=== PATIENT | male | born 1965 | race Caucasian/White ===

== ENCOUNTER → 2023-02-27 15:01 | Outpatient (CLI) | payer MEDICARE, SELFPAY ==
--- NOTE | 2023-02-27 15:09 | XR_ITS ---
FINAL REPORT TECHNIQUE: Chest PA & Lateral CLINICAL HISTORY: cough, upper lt sided abd pain FINDINGS: 2 views of the chest were performed. The heart size is normal. The mediastinum is within normal limits. There is a 19 mm nodular opacity in the right lateral lower thorax. There are no pleural effusions. There is no pneumothorax. There is a chronic fracture of the right sixth posterior rib. There is postoperative change involving the thoracolumbar spine. IMPRESSION: Nodular opacity in the right lateral lower thorax. Uncertain if this is related to the right posterior 10th rib. Follow-up may be helpful. Reviewed, Interpreted and Dictated by Maurilio Merritt III, MD Transcribed by Andrea Rader Authenticated and [facility]
== END ==
PROVIDERS: PCP Family Medicine; Visit Provider Family Medicine
DX: R05.9 Cough, unspecified (principal)
CPT/HCPCS: 71046

== ENCOUNTER → 2023-03-12 12:44 | Outpatient (POV) | payer MEDICARE, SELFPAY ==
--- NOTE | 2023-03-12 13:17 | EXP.PAIN.OV ---
HPI Data of Consult Patient: new to practice Consult date: 03/12/23 Requesting Physician: Tamiko Montalvo APRN Primary Care Provider: Tom Ledesma MD Consult Narrative Reason for consult: Low back pain, bilateral shoulder pain, wrist pain History of present illness: Mr. Franz is a 57 year old male who presents today as a new patient. He is a referral from Dr. Ledesma's office. Today he rates his pain a 10 out of 10. Patient states his pain is all in his low back as well as he has bilateral shoulders. Patient states this has been going on for years and progressively worsened over time. He does describe this as an aching with sharp shooting pain sensations that are worse with increased activity. Patient states he has had a lumbar fusion from L1-L4 that was done at [facility]. He states following this procedure he did go and see a doctor Milly who stated that some of the screws did not fuse correctly and that he was recommending to go in and do a revision to the previous fusion. he states that Dr. Ledesma's office does not believe he is a surgical candidate at this time. Patient has tried [id number] medications such as Tylenol and ibuprofen along with heat and ice and topicals with minimal improvement. He has had physical therapy on multiple occasions as well as multiple injections none of which provided any additional relief. Patient is currently managed with Percocet 7.5 mg 3 times a day, gabapentin 600 mg 4 times a day clonazepam 1 mg 3 times a day and tizanidine 4 mg 3 times daily from outside providers. Patient denies any side effects from this medication. Patient does state that he did previously see a pain doctor and that recently when he asked for all of his records that they stopped prescribing his Percocet. Patient does state that he has had updated imaging done at [facility]. Patient does use a cane for additional help with ambulation. His Sj is [id number]. Its been reviewed and appropriate. CC: Tamiko Montalvo APRN [facility] Disclaimer: The information contained in this section may have been updated after the patient was seen, as this information can be updated by other users. Medical History (Updated 03/12/23 @ 13:38 by Tamiko Montalvo APRN) HTN (hypertension) Surgical History (Updated 02/26/23 @ 18:07 by Tom Ledesma MD) History of back surgery History of right shoulder replacement History of total right knee replacement Social History Smoking Status: Current every day smoker alcohol intake: never current occupational status: disabled Travel in the last 8 weeks: None Review of Systems Review of Systems Review of systems:: pertinent systems reviewed and negative unless documented below Review of systems (narrative): Review of Systems: General: No recent weight changes, no fever, no sleep disturbances Respiratory: No cough, no shortness of air, no recurring pulmonary infections Cardiovascular/peripheral vascular: No chest pain, no palpitations, no edema, no shortness of breath Gastrointestinal: No new onset incontinence, normal bowel movements reported Genitourinary: No new onset incontinence Musculoskeletal: Low back pain, Bilateral shoulder pain, wrist pain Psychiatric: [Normal mood/affect] Neurological: [Denies weakness in extremities], [denies balance issues] Meds Home Medications and Allergies Home Medications Medication Instructions Recorded Confirmed Type amlodipine 10 mg tablet 10 mg PO DAILY 01/29/23 02/26/23 History benzonatate 200 mg capsule 200 mg PO TID PRN cough #90 caps 01/29/23 02/26/23 Rx clonazepam 1 mg tablet 1 mg PO DAILY 01/29/23 02/26/23 History duloxetine 60 mg capsule,delayed 60 mg PO DAILY 01/29/23 02/26/23 History release (Cymbalta) gabapentin 600 mg tablet 600 mg PO 01/29/23 02/26/23 History hydrochlorothiazide 25 mg tablet 25 mg PO DAILY 01/29/23 02/26/23 History mirtazapine 15 mg tablet 15 mg P
[2023-03-12 13:33] VITALS: BP 140/85; PULSE 118; RESP 18; O2SAT 98; BMI 21.9
== END ==
PROVIDERS: PCP Family Medicine; Visit Provider Nurse Practitioner Family
DX: M96.1 Postlaminectomy syndrome, not elsewhere classified; M54.50 Low back pain, unspecified; G89.29 Other chronic pain; M25.511 Pain in right shoulder; M25.512 Pain in left shoulder; M25.539 Pain in unspecified wrist; M51.36 Other intervertebral disc degeneration, lumbar region
CPT/HCPCS: 99202; G0463

== ENCOUNTER → 2023-03-28 23:00 | Outpatient (CLI) | payer MEDICARE, SELFPAY ==
[2023-03-28 19:33] LABS: Basophils % 0.3 % (0.1-2.0); Eosinophils # 0.1 K/mm3 (0.0-0.4); Eosinophils % 1.5 % (0.1-12.0); Hematocrit 43.6 % (42.0-52.0); Hemoglobin 14.1 g/dL (14.1-18.0); Lymphocytes # 2.2 K/mm3 (0.7-4.5); Lymphocytes % 27.8 % (10-50); Mean Corpuscular HGB Conc 32.3 g/dL (31.8-35.4); Mean Corpuscular Hemoglobin 33.4 pg (27.0-31.2); Mean Corpuscular Volume 103.7 fl (80-94); Mean Platelet Volume 8.7 fl (7.4-10.4); Monocytes # 0.4 K/mm3 (0.1-1.0); Monocytes % 5.6 % (1.7-9.3); Neutrophils % 64.8 % (37.0-80.0); Platelet Count 479 K/mm3 (142-424); Red Blood Count 4.21 M/mm3 (4.60-6.20); White Blood Count 7.7 K/mm3 (4.8-10.8)
[2023-03-28 19:36] LABS: Alanine Aminotransferase 20 U/L (12-78); Albumin Level 4.4 g/dl (3.5-5.0); Albumin/Globulin Ratio 1.6 (1.1-1.8); Alkaline Phosphatase 144 U/L (38-126); Anion Gap 9.3 mEq/L (5-15); Aspartate Amino Transferase 29 U/L (17-59); Bilirubin,Total 0.4 mg/dl (0.2-1.3); Blood Urea Nitrogen 6 mg/dl (9-20); Calcium 9.5 mg/dl (8.4-10.2); Carbon Dioxide 33 mmol/L (22.0-30.0); Chloride 99 mmol/L (98-107); Chol/HDL Ratio 3.5 (1-3.5); Cholesterol 263 mg/dl (140-200); Estimated Glomerular Filt Rate 87 ml/min (>60); GFR (African American) 105 ML/MIN (>60); Globulin 2.7 g/dL (1.3-3.2); Glucose 94 mg/dl (74-100); HDL Cholesterol 75 mg/dl (40-60); Potassium 3.3 mmoL/L (3.5-5.1); Sodium 138 mmol/L (136-145); Total Protein,Serum 7.1 g/dl (6.3-8.2); Triglycerides 245 mg/dl (30-150); VLDL Cholesterol 49 mg/dL (0-40)
[2023-03-28 19:47] LABS: Direct LDL Cholesterol 137.98 mg/dL (100-129)
[2023-03-28 20:06] LABS: Prostate Specific Ag Screen 0.3 ng/ml (0.0-4.0)
== END ==
PROVIDERS: PCP Family Medicine; Visit Provider Family Medicine
DX: M54.50 Low back pain, unspecified (principal); G89.29 Other chronic pain; Z12.5 Encounter for screening for malignant neoplasm of prostate; E78.5 Hyperlipidemia, unspecified
CPT/HCPCS: 80053; 80061; 85025; G0103

== ENCOUNTER → 2023-03-30 14:36 | Outpatient (CLI) | payer MEDICARE, SELFPAY ==
--- NOTE | 2023-03-30 14:36 | CT_ITS ---
FINAL REPORT TECHNIQUE: Axial CT images were performed from the lung apices through the upper abdomen. Coronal reformats were submitted. This study was performed with techniques to keep radiation doses as low as reasonably achievable (ALARA). Individualized dose reduction techniques using automated exposure control or adjustment of mA and/or kV according to the patient's size were employed. CLINICAL HISTORY: Abnormal Chest XR/Chest lesion COMPARISON: 02/27/2023 FINDINGS: There is moderate left coronary artery calcification. There is no axillary adenopathy. There is no hilar or mediastinal mass or adenopathy. Heart size is normal. There is no pericardial or pleural effusion. Limited images of the upper abdomen are unremarkable. No suspicious infiltrate or nodule is identified on lung window images. There are multiple bilateral subacute and chronic rib fractures including right 10th posterolateral rib fractures which corresponds to the abnormality seen on chest radiograph. There are postoperative changes in the lumbar spine. IMPRESSION: Multiple bilateral acute and subacute rib fractures including a right 10th posterolateral rib fractures which corresponds to chest abnormality. Reviewed, Interpreted and Dictated by Maurilio Merritt III, MD Transcribed by Ana Garza Authenticated and [facility]
== END ==
LOC: RAD 14:36
PROVIDERS: PCP Family Medicine; Visit Provider Family Medicine
DX: R84.9 Unspecified abnormal finding in specimens from respiratory organs and thorax (principal); R93.89 Abnormal findings on diagnostic imaging of other specified body structures
CPT/HCPCS: 71250

== ENCOUNTER → 2023-04-12 14:00 | Outpatient (POV) | payer MEDICARE, SELFPAY ==
[2023-04-12 14:07] VITALS: BP 123/81; PULSE 105; RESP 20; BMI 21.9
--- NOTE | 2023-04-12 14:55 | EXP.PAIN.SOA ---
[facility] Pain Management SOAP Note Subjective:: Patient is a pleasant 58-year-old male who presents today for follow-up. We are currently treating the patient for degenerative disc disease of lumbar spine with lumbar radiculopathy symptoms, chronic pain syndrome, failed back surgery, bilateral shoulder pain, wrist pain. Today he rates his pain an 8 out of 10. Patient denies any new trauma or injury. Patient states that he continues to have chronic pain at multiple sites including his low back and shoulders. He does feel like his shoulders have gotten worse. Patient does have a longstanding history of seeing multiple specialist regarding his shoulders that did have rotator cuff tears bilaterally. He states that he wants to hold by a surgeon that he would not do a reverse rotator cuff repair due to the extent of injury. Patient is currently prescribed Percocet 7.5 mg twice a day and clonazepam 1 mg 3 times a day and gabapentin 600 mg 4 times a day from an outside provider. He denies is any side effects from these medications. From our last visit he was scheduled for a psych eval however he states he did not get the phone call however he does state that he is hard of hearing on occasion. His Sj is [id number]. Its been reviewed and appropriate. Review of Systems: General: No recent weight changes, no fever, no sleep disturbances Respiratory: No cough, no shortness of air, no recurring pulmonary infections Cardiovascular/peripheral vascular: No chest pain, no palpitations, no edema, no shortness of breath Gastrointestinal: No new onset incontinence, normal bowel movements reported Genitourinary: No new onset incontinence Musculoskeletal: Low back pain, bilateral shoulder pain Psychiatric: [Normal mood/affect] Neurological: [Denies weakness in extremities], [denies balance issues] Objective:: Physical Exam: General: Alert and oriented x3, no acute distress, pleasant and cooperative Lungs: Respirations even and unlabored, symmetrical chest expansion Eyes: PERRL Musculoskeletal: Flexion and extension of lumbar [spine] somewhat guarded secondary to pain, [antalgic gait noted] Neurological: Speech clear, no gross sensory deficit Assessment:: Degenerative disc disease of lumbar spine with lumbar radiculopathy symptoms, chronic pain syndrome, failed back surgery, bilateral shoulder pain, wrist pain Plan:: We have given the patient the number for his psychological evaluation and also taken down his 's number as a reference in case we are unable to reach him on his phone for the appointment. Patient will return to clinic in 1 month following his evaluation for plan of care and reevaluation of symptoms. Patient has been instructed to contact the clinic with any concerns before the next appointment. Dr. Hunt has reviewed this note and agrees with this plan of care. This note was dictated using voice recognition software and make contain errors or omissions. [facility] Disclaimer: The information contained in this section may have been updated after the patient was seen, as this information can be updated by other users. Medical History Anxiety and depression HTN (hypertension) Surgical History History of back surgery History of right shoulder replacement History of total right knee replacement Social History Smoking Status: Current every day smoker alcohol intake: never current occupational status: other Travel in the last 8 weeks: None
== END ==
PROVIDERS: PCP Family Medicine; Visit Provider Nurse Practitioner Family
DX: M51.16 Intervertebral disc disorders with radiculopathy, lumbar region (principal); G89.4 Chronic pain syndrome; M25.511 Pain in right shoulder; M25.512 Pain in left shoulder; M25.539 Pain in unspecified wrist
CPT/HCPCS: 99212; G0463

== ENCOUNTER → 2023-05-10 14:01 | Outpatient (POV) | payer MEDICARE, SELFPAY ==
[2023-05-10 14:10] VITALS: BP 147/89; PULSE 98; RESP 18; O2SAT 100; BMI 21.9
--- NOTE | 2023-05-10 14:18 | EXP.PAIN.SOA ---
[facility] Pain Management SOAP Note Subjective:: Patient is a pleasant 58-year-old male who presents today for follow-up. We are currently treating the patient for degenerative disc disease of lumbar spine with lumbar radiculopathy symptoms, chronic pain syndrome, failed back surgery, bilateral shoulder pain, wrist pain. Today he rates his pain a 10 out of 10. Patient denies any new trauma or injury. He does just state today is a bad day with severe low back and bilateral shoulder pain. He does state that he has not been sleeping well due to his shoulders. He states that he cannot get comfortable laying on either side and frequently gets up in the middle the night multiple times due to this pain. Patient does state the pain interferes with his ability perform activities of daily living such as cooking or cleaning. Patient has had intra-articular injections before into his shoulders however over time these became less and less effective. Patient does have bilateral rotator cuff tears and has been to see surgeons in the past. Patient is currently managed with Percocet 7.5 mg 3 times a day, clonazepam 1 mg 3 times a day, gabapentin 600 mg 4 times a day and tizanidine 4 mg 3 times daily all written from outside providers. He denies any side effects from this medication. He does state that he feels like the muscle relaxer does not do anything to help his pain. He does state that he just went and completed his psych eval for the pain pump trial. Patient states that the provider said that he did score well. His Sj is [id number]. Its been reviewed and appropriate. Review of Systems: General: No recent weight changes, no fever, no sleep disturbances Respiratory: No cough, no shortness of air, no recurring pulmonary infections Cardiovascular/peripheral vascular: No chest pain, no palpitations, no edema, no shortness of breath Gastrointestinal: No new onset incontinence, normal bowel movements reported Genitourinary: No new onset incontinence Musculoskeletal: Bilateral shoulder pain Psychiatric: [Normal mood/affect] Neurological: [Denies weakness in extremities], [denies balance issues] Objective:: Physical Exam: General: Alert and oriented x3, no acute distress, pleasant and cooperative Lungs: Respirations even and unlabored, symmetrical chest expansion Eyes: PERRL Musculoskeletal: Flexion and extension of bilateral shoulders somewhat guarded secondary to pain, [antalgic gait noted] Neurological: Speech clear, no gross sensory deficit Assessment:: Degenerative disc disease of lumbar spine with lumbar radiculopathy symptoms, chronic pain syndrome, failed back surgery, bilateral shoulder pain, wrist pain Plan:: Patient continues to experience significant, chronic pain in his bilateral shoulders related to rotator cuff tears. Patient did have limited range of motion of his shoulders during today's exam. I have discussed with the patient that he may benefit from bilateral shoulder suprascapular nerve blocks. Risk and benefits were explained to the patient and he would like to proceed forward with this plan of care. I will also send in a 14-day supply of baclofen 10 mg 3 times daily. I have discussed with the patient to discontinue his tizanidine while trying this medication. I have also counseled him to contact our office if this medication does help and he would like additional refills. We have not gotten his psych eval report back to our office and I have explained once we do get this and if he is deemed an appropriate candidate we will proceed forward with the intrathecal pain pump trial being submitted to insurance. Patient will be scheduled for bilateral shoulder suprascapular nerve blocks. Patient has been instructed to contact the clinic with any concerns before the next appointment. Dr. Hunt has reviewed this note and agrees with this plan of care. This note was dictated using voice recognition software and make contain errors or omissions. [facility]
== END | disposition home or self-care (01) ==
PROVIDERS: PCP Family Medicine; Visit Provider Nurse Practitioner Family
DX: M51.16 Intervertebral disc disorders with radiculopathy, lumbar region (principal); G89.4 Chronic pain syndrome; M96.1 Postlaminectomy syndrome, not elsewhere classified; M25.511 Pain in right shoulder; M25.512 Pain in left shoulder; M25.539 Pain in unspecified wrist
CPT/HCPCS: 99212; G0463

== ENCOUNTER 2023-05-22 10:32 | Day surgery (SDC) | payer MEDICARE, SELFPAY ==
[2023-05-22 10:41] VITALS: BP 120/72; PULSE 91; RESP 17; TEMP 36.6; O2SAT 97; BMI 21.7
[2023-05-22 10:50] VITALS: BP 115/82; PULSE 82; RESP 18; O2SAT 98
[2023-05-22 10:53] VITALS: BP 115/82; PULSE 82; RESP 18; O2SAT 98
--- NOTE | 2023-05-22 11:04 | P.PCN_ITS ---
Procedure Date: 05/22/23 Time: 10:22 Anesthesiologist:: Lorenzo Young CRNA Complications:: None Pre-procedure Diagnosis:: Chronic bilateral shoulder pain. Osteoarthritis bilateral shoulder. Post-procedure Diagnosis:: Same. Indications for Procedure:: Patient is a very pleasant 58-year-old male that comes our clinic today for bilateral suprascapular nerve blocks. Patient has had multiple intra-articular shoulder cortisone injections. The last couple he has received have not been very effective. He complains of shoulder pain with limited range of motion secondary to pain. Procedure Details:: Details of the procedure explained to the patient. The patient a procedure room placed in sitting position. The area over the right superior margin of the scapula was cleansed using chlorhexidine as a cleansing solution. Using a 25- gauge inch and half needle a solution containing 0.25% Marcaine +1% lidocaine and 40 mg Depo-Medrol was injected on the superior lateral border of the right scapula. 8 mL of solution was injected in total. The same procedure was carried out over the left suprascapular area. Patient tolerated procedure without difficulty. No complications Plan and Disposition:: Patient was discharged without incident.
[2023-05-22 11:05] VITALS: BP 120/79; PULSE 70; RESP 20
== END 2023-05-22 11:05 | disposition home or self-care (01) ==
PROVIDERS: PCP Family Medicine; Visit Provider Nurse Anesthetist, Certified Registered
DX: M19.011 Primary osteoarthritis, right shoulder (principal); M19.012 Primary osteoarthritis, left shoulder; M25.511 Pain in right shoulder; M25.512 Pain in left shoulder; G89.29 Other chronic pain
CPT/HCPCS: 64418; J1040

== ENCOUNTER → 2023-05-31 10:38 | Outpatient (CLI) | payer MEDICARE, SELFPAY ==
--- NOTE | 2023-05-31 10:38 | CT_ITS ---
FINAL REPORT TECHNIQUE: Pre- and postcontrast images of the abdomen were performed by computed tomography. CLINICAL HISTORY: Left abdomen pain COMPARISON: None FINDINGS: The lung bases are clear. Diffuse vascular calcifications are present. There are multiple chronic rib fractures present, and there is orthopedic hardware bridging a posterior fusion of the thoracolumbar spine. The liver is normal in size and attenuation, with one small low-density area in the right lobe of the liver, another in the left lobe of the liver, most compatible in appearance with hepatic cysts. The spleen is unremarkable. The adrenals are normal. The pancreas is unremarkable. The kidneys enhance appropriately. There is a 6 mm posterior left renal density, which on precontrast-enhanced images measures 80 Hounsfield units, without definite enhancement postcontrast. This is favored to represent a hyperdense cyst. The appendix is not well visualized on this examination. IMPRESSION: 6 mm posterior left renal density as described, appearance most suggestive of a hyperdense cyst. Would recommend a follow-up with and without contrast CT in 6 to 12 months. Reviewed, Interpreted and Dictated by Maurilio Merritt III, MD Transcribed by Shana Lopez Authenticated and [facility]
[2023-05-31 11:18] LABS: Blood Urea Nitrogen 11 mg/dl (9-20); Estimated Glomerular Filt Rate 86 ml/min (>60); GFR (African American) 105 ML/MIN (>60)
== END ==
PROVIDERS: PCP Family Medicine; Visit Provider Family Medicine
DX: R18.8 Other ascites (principal)
CPT/HCPCS: 36415; 74170; 82565; 84520; Q9967

== ENCOUNTER → 2023-06-07 14:21 | Outpatient (POV) | payer MEDICARE, SELFPAY ==
[2023-06-07 14:37] VITALS: BP 132/82; PULSE 99; RESP 18; O2SAT 95; BMI 21.7
--- NOTE | 2023-06-07 15:57 | EXP.PAIN.SOA ---
[facility] Pain Management SOAP Note Subjective:: Patient is a pleasant 58-year-old male who presents today for follow-up of bilateral suprascapular nerve block on 05/22/2023. We are currently treating the patient for degenerative disc disease of lumbar spine with lumbar radiculopathy symptoms, chronic pain syndrome, failed back surgery, bilateral shoulder pain, wrist pain. Today he rates his pain a 8 out of 10. Patient denies any new trauma or injury. He does state that the shoulder injections did provide significant improvement for approximately 1 week of at least 50%. Today he does state that he is back to his baseline. He states the pain is a constant aching, throbbing sensation in his low back and his shoulders with limited range of motion. He states he frequently has to change positions multiple times to have any relief. He states the pain does interfere with his ability perform activities of daily living such as cooking and cleaning. Patient does have bilateral rotator cuff tears that have been evaluated by orthopedic surgeons in the past. He does state that he had his last visit at his previous pain management and that his provider there has officially retired. He was managed with Percocet 7.5 mg 3 times a day, gabapentin 600 mg 4 times a day from this office. He is requesting if we can take over these prescriptions. He did state that the provider did give him an extra month of refills of his medications in the meantime. He is also prescribed clonazepam 1 mg 3 times a day from an outside provider and at our last visit we did send in a prescription of baclofen 10 mg 3 times a day. Patient had previously tried tizanidine and it did not get significant relief. He does state that the baclofen did make a big difference and he would like refills of this medication. Patient does also state that he has gone to his psychological evaluation patient has been instructed to contact the clinic with any concerns before the next appointment. Dr. Hunt has reviewed this note and agrees with this plan of care. This note was dictated using voice recognition software and make contain errors or omissions. Would like to proceed forward with the pain pump trial if he was deemed an appropriate patient. His Sj is [id number]. Its been reviewed and appropriate. Review of Systems: General: No recent weight changes, no fever, no sleep disturbances Respiratory: No cough, no shortness of air, no recurring pulmonary infections Cardiovascular/peripheral vascular: No chest pain, no palpitations, no edema, no shortness of breath Gastrointestinal: No new onset incontinence, normal bowel movements reported Genitourinary: No new onset incontinence Musculoskeletal: Low back pain, bilateral shoulder pain Psychiatric: [Normal mood/affect] Neurological: [Denies weakness in extremities], [denies balance issues] Objective:: Physical Exam: General: Alert and oriented x3, no acute distress, pleasant and cooperative Lungs: Respirations even and unlabored, symmetrical chest expansion Eyes: PERRL Musculoskeletal: Flexion and extension of lumbar [spine] somewhat guarded secondary to pain, [antalgic gait noted] Neurological: Speech clear, no gross sensory deficit Assessment:: Degenerative disc disease of lumbar spine with lumbar radiculopathy symptoms, chronic pain syndrome, failed back surgery, bilateral shoulder pain, wrist pain Plan:: Patient did have an appropriate psychological evaluation and was deemed an appropriate candidate for the pain pump trial. I have went back over and reviewed the risk and benefits of this procedure and he would like to proceed forward with this plan of care. We will submit to insurance for the official pain pump trial and contact the patient with official date and time of this procedure once we have approval. I will send in a prescription of the baclofen 10 mg 3 times a day and provide a 1 month supply of this medication. I have also counseled the patient that I will
== END | disposition home or self-care (01) ==
PROVIDERS: Visit Provider Nurse Practitioner Family
DX: M51.16 Intervertebral disc disorders with radiculopathy, lumbar region (principal); M96.1 Postlaminectomy syndrome, not elsewhere classified; M25.511 Pain in right shoulder; M25.512 Pain in left shoulder; M25.539 Pain in unspecified wrist
CPT/HCPCS: 99212; G0463

== ENCOUNTER 2023-07-06 09:46 | Day surgery (SDC) | payer MEDICARE, SELFPAY ==
[2023-07-06 10:00] VITALS: BP 105/77; PULSE 100; RESP 20; O2SAT 96; BMI 21.7
[2023-07-06 10:23] VITALS: BP 132/82; PULSE 78; PULSE 79; RESP 18; O2SAT 96
[2023-07-06 11:45] VITALS: BP 128/84; PULSE 82; RESP 20; O2SAT 94
--- NOTE | 2023-07-06 11:45 | PC.NURSE ---
1030-pt ambaulted to bay, accompanied by nursing staff. VS-117/85, 87, 20,97%. lumbar dressing c/d/i. rates pain 5 on scale of 0-10. no needs or concerns at this time. 1032-Dr. Hunt at [facility] 1045-pt resting in chair, spouse at bedside. VS-120/82, 85, 20, 97%. lumbar dressing c/d/i. rates pain 5 on scale of 0-10. no needs or concerns at this time. 1100-pt resting in chair, spouse at bedside. VS-130/80, 76, 20, 94%. lumbar dressing c/d/i. rates pain 5 on scale of 0-10. no needs or concerns at this time. 1115-pt resting in chair, spouse at bedside. VS-121/74, 78, 20, 9%. lumbar dressing c/d/i. rates pain 5 on scale of 0-10. no needs or concerns at this time. 1120-pt ambulated to nursing station, accompanied by nursing staff. gait steady, reports decreased pain with ambulation.
--- NOTE | 2023-07-06 15:22 | EXP.PAIN.PRO ---
Procedure Date: 07/06/23 Time: 15:26 Anesthesiologist:: Garland Hunt MD Complications:: None Pre-procedure Diagnosis:: Postlaminectomy syndrome lumbar spine with lumbar radiculopathy symptoms Post-procedure Diagnosis:: Same Indications for Procedure:: This patient is a pleasant 58-year-old white male who we are treating for low back pain with lumbar radiculopathy symptoms and postlaminectomy syndrome lumbar spine. He is currently on Percocet and also he is on clonazepam. He last took his Percocet last night. He has failed all previous conservative treatments including injections, oral medications, physical therapy and is not a candidate for any further surgery. He has had a successful psychological evaluation. He presents for intrathecal pump trial today. Procedure Details:: Pain pump trial Informed consent was obtained and the risk and benefits of the procedure was explained to the patient. The patient was taken to the procedure room and placed prone on the procedure table. Patient was prepped and draped in sterile fashion. C-arm fluoroscopy was used to view the lumbar spine. The skin and subcutaneous tissues were anesthetized using lidocaine. I placed a 18-gauge spinal needle into the L4-5 interspace and advanced until clear CSF was obtained. After this intrathecal catheter was inserted and advanced very easily to the L1 vertebral body. The needle was withdrawn. We were able to freely withdraw clear CSF through the catheter. We then injected intrathecal opioid single shot bolus of 25 mcg followed by saline and followed by the previous CSF that was withdrawn. The needle and catheter were then removed and a Band-Aid was placed. Patient tolerated the procedure well with no complications. We reevaluated the patient after 30 minutes to 1 hour. He was also reassessed by physical therapy. This patient had 90 to 100% relief in pain symptoms. He is walking much better and standing much better. He was much more functional. By all indications this did seem to be a successful intrathecal pump trial. We will follow-up with him in 1 week we will reevaluate symptoms at that time. If successful we will plan on implant with intrathecal morphine 1 mg per ml to start at 100 mcg/day. Catheter tip will be the T8 vertebral body. Plan and Disposition:: We will follow-up with this patient in 1 week. We will evaluate efficacy of this trial. If successful we will plan on permanent placement with intrathecal morphine 1 mg per mall to start at 100 mcg/day. He will need to be off of his clonazepam prior to implant and also wean off of his Percocet after implant.
== END 2023-07-06 11:45 | disposition home or self-care (01) ==
LOC: SC.PAINP 09:49
PROVIDERS: PCP Family Medicine; Visit Provider Anesthesiology
DX: M96.1 Postlaminectomy syndrome, not elsewhere classified (principal); M54.16 Radiculopathy, lumbar region
CPT/HCPCS: 62323; 96365

== ENCOUNTER → 2023-07-31 09:48 | Outpatient (CLI) | payer MEDICARE, SELFPAY ==
[2023-07-31 18:33] LABS: Basophils % 0.5 % (0.1-2.0); Eosinophils # 0.1 K/mm3 (0.0-0.4); Eosinophils % 1.5 % (0.1-12.0); Hematocrit 39.5 % (42.0-52.0); Hemoglobin 13.2 g/dL (14.1-18.0); Lymphocytes # 2.4 K/mm3 (0.7-4.5); Lymphocytes % 31.2 % (10-50); Mean Corpuscular HGB Conc 33.5 g/dL (31.8-35.4); Mean Corpuscular Hemoglobin 35.3 pg (27.0-31.2); Mean Corpuscular Volume 105.4 fl (80-94); Mean Platelet Volume 9.4 fl (7.4-10.4); Monocytes # 0.4 K/mm3 (0.1-1.0); Monocytes % 5.5 % (1.7-9.3); Neutrophils # 4.7 K/mm3 (1.8-7.8); Neutrophils % 61.3 % (37.0-80.0); Platelet Count 355 K/mm3 (142-424); Red Blood Count 3.75 M/mm3 (4.60-6.20); Red Cell Distribution Width 14.3 % (11.5-17.5); White Blood Count 7.7 K/mm3 (4.8-10.8)
[2023-07-31 18:38] LABS: Alanine Aminotransferase 18 U/L (12-78); Albumin Level 3.8 g/dl (3.5-5.0); Albumin/Globulin Ratio 1.5 (1.1-1.8); Alkaline Phosphatase 83 U/L (38-126); Anion Gap 13.6 mEq/L (5-15); Aspartate Amino Transferase 45 U/L (17-59); Bilirubin,Total 0.3 mg/dl (0.2-1.3); Blood Urea Nitrogen 10 mg/dl (9-20); Calcium 9.2 mg/dl (8.4-10.2); Carbon Dioxide 27 mmol/L (22.0-30.0); Chloride 101 mmol/L (98-107); Estimated Glomerular Filt Rate 62 ml/min (>60); GFR (African American) 75 ML/MIN (>60); Globulin 2.6 g/dL (1.3-3.2); Glucose 86 mg/dl (74-100); Potassium 3.6 mmoL/L (3.5-5.1); Sodium 138 mmol/L (136-145); Total Protein,Serum 6.4 g/dl (6.3-8.2); Uric Acid 6.4 mg/dl (3.5-8.5)
== END ==
PROVIDERS: PCP Family Medicine; Visit Provider Nurse Practitioner
DX: M79.89 Other specified soft tissue disorders (principal); R60.0 Localized edema
CPT/HCPCS: 80053; 84550; 85025

== ENCOUNTER → 2023-08-03 23:00 | Outpatient (CLI) | payer MEDICARE, SELFPAY ==
[2023-08-03 19:48] LABS: Vitamin B12 229 pg/mL (239-931)
== END ==
PROVIDERS: PCP Family Medicine; Visit Provider Family Medicine
DX: R60.0 Localized edema (principal); I50.9 Heart failure, unspecified
CPT/HCPCS: 82607; 83880

== ENCOUNTER → 2023-08-31 23:33 | Outpatient (CLI) | payer MEDICARE, SELFPAY ==
[2023-08-31 19:42] LABS: Amphetamine/Metha Screen,Urine Negative ng/ml (<1000)
[2023-08-31 19:45] LABS: Barbiturates Screen,Urine Negative ng/ml (<200); Benzodiazepines Screen,Urine Negative ng/ml (<200)
[2023-08-31 19:46] LABS: Opiate Screen,Urine Negative ng/ml (<300)
[2023-08-31 19:47] LABS: Cocaine Screen,Urine Negative ng/ml (<300); Methadone Screen,Urine Negative ng/ml (<300)
[2023-08-31 19:49] LABS: Phencyclidine Screen,Urine Negative ng/ml (<25)
[2023-08-31 19:55] LABS: Cannabinoid Screen,Urine Negative ng/ml (<50)
== END ==
PROVIDERS: PCP Family Medicine; Visit Provider Family Medicine
DX: G89.29 Other chronic pain (principal)
CPT/HCPCS: 80305

== ENCOUNTER 2025-02-11 20:50 | Outpatient (CLI) | payer MEDICARE, SELFPAY ==
[2025-02-11 22:36] LABS: Basophils # 0.1 K/mm3 (0-0.2); Basophils % 0.6 % (0.1-2.0); Eosinophils # 0.1 Kmm3 (0.0-0.4); Eosinophils % 0.9 % (0.1-12.0); Hematocrit 41.1 % (42.0-52.0); Hemoglobin 13.6 g/dL (14.1-18.0); Immature Granulocytes # 0.02 10^3uL; Immature Granulocytes % 0.3 %; Lymphocytes # 2.4 K/mm3 (0.7-4.5); Lymphocytes % 31.2 % (10-50); Mean Corpuscular HGB Conc 33.1 g/dL (31.8-35.4); Mean Corpuscular Hemoglobin 32.9 pg (27.0-31.2); Mean Corpuscular Volume 99.5 fl (80-94); Mean Platelet Volume 9.7 fl (7.4-10.4); Monocytes # 0.5 K/mm3 (0.1-1.0); Monocytes % 6.5 % (1.7-9.3); Neutrophils # 4.7 K/mm3 (1.8-7.8); Neutrophils % 60.5 % (37.0-80.0); Nucleated Red Blood Cells # 0 10^3/uL; Nucleated Red Blood Cells % 0 %; Platelet Count 450 K/mm3 (142-424); Red Blood Count 4.13 M/mm3 (4.60-6.20); Red Cell Distribution Width 13.3 % (11.5-17.5); Red Cell Distribution Width-SD 48.7 fL; White Blood Count 7.7 K/mm3 (4.8-10.8)
[2025-02-11 23:06] LABS: Alanine Aminotransferase 17 U/L (12-78); Albumin Level 5.1 g/dl (3.5-5.0); Albumin/Globulin Ratio 1.9 (1.1-1.8); Alkaline Phosphatase 104 U/L (38-126); Anion Gap 16.9 mEq/L (5-15); Aspartate Amino Transferase 26 U/L (17-59); Bilirubin,Total 0.4 mg/dl (0.2-1.3); Blood Urea Nitrogen 8 mg/dl (9-20); Calcium 9.9 mg/dl (8.4-10.2); Carbon Dioxide 21 mmol/L (22.0-30.0); Chloride 104 mmol/L (98-107); Chol/HDL Ratio 4.1 (1-3.5); Cholesterol 239 mg/dl (140-200); Estimated Glomerular Filt Rate 76 ml/min (>60); GFR (African American) 92 ML/MIN (>60); Globulin 2.7 g/dL (1.3-3.2); Glucose 99 mg/dl (74-100); HDL Cholesterol 58 mg/dl (40-60); Potassium 4.9 mmoL/L (3.5-5.1); Sodium 137 mmol/L (136-145); Total Protein,Serum 7.8 g/dl (6.3-8.2); Triglycerides 167 mg/dl (30-150); VLDL Cholesterol 33 mg/dL (0-40)
[2025-02-11 23:17] LABS: Direct LDL Cholesterol 168.25 mg/dL (100-129)
[2025-02-11 23:37] LABS: Prostate Specific Ag Screen 0.9 ng/ml (0.0-4.0)
== END 2025-02-11 23:59 | disposition home or self-care (01) ==
LOC: LAB.DROPOF 20:50
PROVIDERS: PCP Family Medicine; Visit Provider Family Medicine
DX: E78.5 Hyperlipidemia, unspecified (principal); Z12.5 Encounter for screening for malignant neoplasm of prostate
CPT/HCPCS: 80053; 80061; 85025; G0103